=== PATIENT | male | born 1970 | race African-American/Black ===

== ENCOUNTER 2017-02-15 14:46 | Emergency (ER) | payer SELFPAY ==
[~2017-02-15] VITALS: Ht 172.7 cm; Wt 71.7 kg
[2017-02-15 16:49] VITALS: BP 110/57
== END 2017-02-15 17:27 | disposition home or self-care (01) ==
LOC: ER 14:46
DX: J01.90 Acute sinusitis, unspecified (principal); G44.009 Cluster headache syndrome, unspecified, not intractable
CPT/HCPCS: 70450